=== PATIENT | male | born 1940 | race Two or more races ===

== ENCOUNTER 2020-07-26 12:42 | Emergency (ER) | payer OTHER ==
[~2020-07-26] VITALS: Ht 172.7 cm; Wt 90.7 kg
[2020-07-26] MEDS ORDERED: JANUMET 50-1,01 EACH (12:53)
[2020-07-26] MEDS ORDERED: GRALISE600 MG (12:54)
[2020-07-26] MEDS ORDERED: CHILDREN'S ASPI81 MG (12:55)
[2020-07-26] MEDS ORDERED: COZAAR100 MG (12:56)
[2020-07-26] MEDS ORDERED: GLIPIZIDE XL5 MG (12:56)
[2020-07-26] MEDS ORDERED: SIMVASTATIN5 MG (12:57)
[2020-07-26] MEDS ORDERED: KETO10TA2 PO (16:19)
[2020-07-26] MEDS ORDERED: VISTARIL25 MG PO (16:19)
[2020-07-26] MEDS ORDERED: NORFLEX100MG PO (16:19)
== END 2020-07-26 16:27 | disposition home or self-care (01) ==
LOC: ER 12:42
DX: M54.2 Cervicalgia (principal); Z03.818 Encounter for observation for suspected exposure to other biological agents ruled out